=== PATIENT | female | born 1940 | race African-American/Black ===

== ENCOUNTER 2018-10-09 02:10 | Inpatient (IN) | payer OTHER ==
--- NOTE | 2018-10-09 02:42 | ED Physician Documentation ---
Lower Extremity Injury - HISTORIAN Historian: patient - HPI Chief Complaint: Fall Additional Information: Patient is reported to have started a sleep aid on Aug 30. Since that time the patient has been having some gradually increasing confusion and lethargy. She does not want to get out of bed. Spent most of the day today in bed. This evening fell out of bed and the son was not able to get her back up and called for an ambulance to bring her to the hospital. Patient is confused, according to her son seems to be at baseline to a little worse. Patient does not complain of any pain except with movement of the right lower extremity. No fever or chills noted. Patient has not been eating while. Onset: hours Where: home Severity: mild Context: fall Associated Symptoms:: denies: tingling, numbness distally, swelling, popping sensation, fainted Modifying Factors:: pain on movement (right hip) - ROS CONST: denies: recent illness, fever, chills CVS/RESP: denies: chest pain, shortness of breath GI/: denies: problems urinating, nausea, vomiting NEURO: head injury (abrasion tot he right temporal area). denies: headache - PAST HX Past History: other (HTN, Iron deficiency, dementia, insomnia) Immunizations: influenza Allergies/Adverse Reactions: Allergies Allergy/AdvReac Type Severity Reaction Status Date / Time No Known Allergies Allergy Verified 10/09/18 04:28 Home Medications: Ambulatory Orders Medication Instructions Recorded Ferrous Gluconate [Iron] 236 mg PO DAILY 10/09/18 Mirtazapine 7.5 mg PO 10/09/18 Nifedipine [Nifedipine ER] 60 mg PO DAILY 10/09/18 No122/Iron/Folic Acid 1 each PO DAILY 10/09/18 [ Multi Tablet] - SOCIAL HX Smoking History: non-smoker Alcohol Use: none Drug Use: none - FAMILY HX Family History: other (father - CVA, sister breast cancer) - VITAL SIGNS Vital Signs: Vital Signs Temp Pulse Resp BP Pulse Ox 97.8 F 84 16 142/59 97 10/09/18 03:30 10/09/18 03:30 10/09/18 03:30 10/09/18 03:30 10/09/18 03:30 - REVIEWED ASSESSMENTS Nursing Assessment Reviewed: Yes Vitals Reviewed: Yes Progress - Progress Progress: 04:15 Patient resting comfortably 04:58 CPK elevated at 1059 BUN 28 Creatinine 1.28 Will admitted to acute care for rhabdomyolysis and elevated kidney functions. Will start IV fluids, monitor kidney functions and get PT/OT consultation. ED Results Lab/Radiology - Radiology Radiology Impressions: Right hip History: Hip pain AP and frogleg lateral projections of the right hip demonstrate osteopenia. Heavy femoral arterial vascular calcifications are present. Impression: No acute osseous abnormality. No significant degenerative findings. Heavy femoral arterial vascular calcifications. Head CT without contrast History: Confusion Technique: Axial images were obtained from the skull base to the vertex without IV contrast. There are no comparison studies. Findings: There is age-related cortical volume loss. There is no positive mass effect or intra/extra-axial hemorrhage. Brain parenchyma demonstrates normal attenuation. There is mild soft tissue swelling of the right frontal and right parietal scalp. Visualized paranasal sinuses and mastoid air cells are clear and the calvarium is intact. Impression: No acute intracranial abnormality. Mild soft tissue swelling of the left frontal and parietal scalp. - Orders Orders: ED Orders Category Date Time Status CT BRAIN W/O CONTRAST Stat Exams 10/09/18 Taken RT HIP 2VIEW COMPLETE [RAD] Routine Exams 10/09/18 Taken CBC/PLATELET/DIFF Routine Lab 10/09/18 04:15 Received CMP Routine Lab 10/09/18 04:14 Received CREATINE KINASE Routine Lab 10/09/18 04:14 Received INFLUENZA A&B Routine Lab 10/09/18 03:04 Ordered URINALYSIS Routine Lab 10/09/18 Ordered Lower Extremities Injury Phy - Physical Exam General Appearance: no acute distress, alert Hips: right hip: limited range of motion, pain, left hip: non-tender, normal inspection, normal range of motion, no evidence of injury, N/A: deformity (none), swelling (none) Legs: bilateral: non-tender, normal inspection, normal range of motion, no evidence of injury Knees: bilateral: non-tender, normal inspection, normal range of motion, no evidence of injury Ankle: bilateral: non-tender, normal inspection, normal range of motion, no evidence of injury Foot: bilateral foot: non-tender, normal inspection, normal range of motion, no evidence of injury Gait: limited by pain Neuro/Vascular/Tendon: no vascular compromise, motor nml, sensation nml, tendon injury Head/ENT: pharynx nml, other (abrasion right temporal area) Neck/Back: nml inspection, non-tender Resp/CVS: chest non-tender, breath sounds nml, heart sounds nml, no resp. distress, lungs clear Abdomen: non-tender, pelvis stable Discharge Clincal Impression: Rhabdomyolysis Qualifiers: Rhabdomyolysis type: traumatic Encounter type: initial encounter Qualified Cod e(s): T79.6XXA - Traumatic ischemia of muscle, initial encounter Referrals: Primary Doctor,No [Primary Care Provider] - 2 Days Disposition: 09 ADMITTED INPATIENT Decision to Admit: [id number] Date of Decison to Admit: 10/09/18 Decision Time: 05:21
--- NOTE | 2018-10-09 06:24 | Diagnostic Imaging Report ---
TOI SWANN [facility] [address] [facility] [address] [address] Report Submission Date: Oct 09, 2018 4:56:52 AM TESTING SPECIALIST Patient Study Name: PRADEEP CHAVEZ Date: Oct 09, 2018 4:35:55 AM TESTING SPECIALIST Modality Type: DX Gender: F Description: RT HIP 2VIEW COMPLETE : 38 Institution: [facility] Physician: TOI SWANN Right hip History: Hip pain AP and frogleg lateral projections of the right hip demonstrate osteopenia. Heavy femoral arterial vascular calcifications are present. Impression: No acute osseous abnormality. No significant degenerative findings. Heavy femoral arterial vascular calcifications. Electronically signed on Oct 09, 2018 4:56:52 AM TESTING SPECIALIST by: Monique KAUFMAN
--- NOTE | 2018-10-09 06:26 | Diagnostic Imaging Report ---
TOI SWANN [facility] [address] [facility] [address] [place] [address]. [id number] Report Submission Date: Oct 09, 2018 5:08:33 AM KEY PUNCH OPERATOR Patient Study Name: PRADEEP CHAVEZ Date: Oct 09, 2018 4:23:58 AM KEY PUNCH OPERATOR Modality Type: CT\SR Gender: F Description: CT BRAIN W/O CONTRAST : 38 Institution: [facility] Physician: TOI SWANN Head CT without contrast History: Confusion Technique: Axial images were obtained from the skull base to the vertex without IV contrast. There are no comparison studies. Findings: There is age-related cortical volume loss. There is no positive mass effect or intra/extra-axial hemorrhage. Brain parenchyma demonstrates normal attenuation. There is mild soft tissue swelling of the right frontal and right parietal scalp. Visualized paranasal sinuses and mastoid air cells are clear and the calvarium is intact. Impression: No acute intracranial abnormality. Mild soft tissue swelling of the left frontal and parietal scalp. Electronically signed on Oct 09, 2018 5:08:33 AM KEY PUNCH OPERATOR by: Monique KAUFMAN
[2018-10-09 06:34] VITALS: BMI 28.3
[2018-10-09 07:31] LABS: eGFR (Non-African) 43
[2018-10-09 07:32] LABS: BASOPHILS % 0.3 (0.0-1.5); EOSINOPHILS % 0.7 % (0.0-6.8); MEAN CORPUSCULAR HEMOGLOBIN 28.4 pg (28.0-34.0); MONOCYTES % 8.7 % (0.0-11.0); NEUTROPHILS # 6.5 # k/uL (1.4-7.7)
[2018-10-09 07:34] LABS: APPEARANCE,URINE CLEAR (CLEAR); COLOR,URINE YELLOW (YELLOW); OCCULT BLOOD,URINE 1+ (NEGATIVE)
[2018-10-09] MEDS: amLODIPine BESYLATE 5 MG TABLET PO SCH (07:58)
[2018-10-09] MEDS: MULTIVITAMIN 1 EACH TABLET PO SCH (07:58)
[2018-10-09] MEDS: ENOXAPARIN SODIUM 30 MG/0.3 ML DISP.SYRIN SQ SCH (07:58)
--- NOTE | 2018-10-09 10:25 | History and Physical Report ---
History of Present Illnes - History of Present Illness Reason for Visit: Rhabdomyolysis History of Present Illness: This is a 77 year old female who had a fall last evening in her home. She had experienced another fall the day prior to admission and was down in her bedroom for most of the evening. She has had some significant myalgias as well as a markedly elevated CK (over 1000). - Past Medical History Cardiac: HTN TECHNICAL ADMINISTRATIVE ASSISTANT: Dementia, Other (Insomnia) Renal/: Chronic renal insuff Endocrine: obesity Dermatology: denies: Other - Past Surgical History Past Surgical History: Other (colonoscopy) - Past Social History Smoke: No Alcohol: None Drugs: None Lives: With Family - Health Maintenance Health Maintenance: Cholesterol Influenza Vaccine: Current for this Influenza Season Pneumonia Vaccine: Yes Resuscitation Status: Resusciation Status Resuscitation Status Full Code - Unable to Obtain History Unable to Obtain: No Review of Systems - Review of Systems Constitutional: negative: Fever, Chills Eyes: negative: pain ENT: negative: Ear Pain Respiratory: negative: Cough Cardiovascular: negative: Chest Pain Gastrointestinal: negative: Nausea, Vomiting Genitourinary: negative: Dysuria Musculoskeletal: Other (generalized muscle pain) Skin: negative: Rash Neurological: Weakness, Confusion (due to baseline dementia. She has no memory of coming to the hospital last night) - Medications/Allergies Allergies/Adverse Reactions: Allergies Allergy/AdvReac Type Severity Reaction Status Date / Time No Known Allergies Allergy Verified 10/09/18 04:28 Home Medications: Home Medications Ferrous Gluconate [Iron] 236 mg PO DAILY 10/09/18 Mirtazapine 7.5 mg PO 10/09/18 Nifedipine [Nifedipine ER] 60 mg PO DAILY 10/09/18 No122/Iron/Folic Acid [ Multi Tablet] 1 each PO DAILY 10/09/18 Current Inpatient Medications: Current Inpatient Medications Amlodipine Besylate (Norvasc) 10 mg PO DAILY [facility] Last Admin: 10/09/18 07:58 Dose: 10 mg Enoxaparin Sodium (Lovenox) 30 mg SQ QD [facility] Stop: 10/22/18 07:01 Last Admin: 10/09/18 07:58 Dose: 30 mg Sodium Chloride (Normal Saline) 1,000 mls @ 75 mls/hr IV Q8 [facility] Multivitamins (Tab-A-Swapnil) 1 each PO DAILY [facility] Last Admin: 10/09/18 07:58 Dose: 1 each Exam - Exam Vital Signs: Vital Signs (72 hours) 10/09/18 10/09/18 10/09/18 02:15 03:00 03:30 Temperature 97.8 F 97.8 F 97.8 F Pulse Rate [ 84 84 84 Left Pulse ox] Pulse Rate [ Left] Respiratory 16 16 16 Rate Blood Pressure 131/59 141/61 142/59 [Left Arm] O2 Sat by Pulse 97 98 97 Oximetry 10/09/18 10/09/18 10/09/18 05:45 05:46 09:33 Temperature 97.8 F 97.0 F L 98 F Pulse Rate [ 84 79 Left Pulse ox] Pulse Rate [ 80 Left] Respiratory 16 14 18 Rate Blood Pressure 142/59 137/75 137/69 [Left Arm] O2 Sat by Pulse 98 98 95 Oximetry General: Oriented to Person, Cooperative, Mild distress. No: Oriented to Place, Oriented to Time HEENT: Atraumatic, PERRLA, EOMI Neck: No: Stridor, Rigidity Lungs: Clear to auscultation Cardiovascular: Regular rate, Normal S1, Normal S2 Murmur: No: Systolic Murmur Abdomen: Normal bowel sounds, Soft, Other (Mild diffuse tenderness) Genitourinary: No: Other Male Genitourinary: No: Other Female Genitourinary: No: Other Integumentary: Normal, Warm, Dry Extremities: No clubbing, No cyanosis, No edema Neurological: Normal speech (but with poor content) Psych/Mental Status: No: Mental status NL - Laboratory Results Laboratory Results: Laboratory Results 10/09/18 10/09/18 10/09/18 03:45 03:45 04:14 WBC RBC Hgb Hct MCV MCH MCHC RDW Plt Count Neut % (Auto) Lymph % (Auto) [place] % (Auto) Eos % (Auto) Baso % (Auto) Neut # (Auto) Lymph # (Auto) [place] # (Auto) Eos # (Auto) Baso # (Auto) Sodium 137 Potassium 4.3 Chloride 107 Carbon Dioxide 25 BUN 28 H Creatinine 1.28 H Estimated Creat Clear 51 Est GFR ( Amer) > 60 Est GFR (Non-Af Amer) 43 L Glucose 120 H Calcium 9.0 Total Bilirubin 0.7 AST 112 H ALT 39 Alkaline Phosphatase 66 Creatine Kinase 1059 H Total Protein 7.4 Albumin 4.0 Urine Color Yellow Urine Appearance Clear Urine pH 6.0 Ur Specific [place] 1.025 Urine Protein Trace H Urine Ketones Negative Urine Occult Blood 1+ H Urine Nitrite Negative Urine Bilirubin Negative Urine Urobilinogen 1.0 Ur Leukocyte Esterase Negative Urine Glucose Negative Influenza A (Rapid) Negative Influenza B (Rapid) Negative 10/09/18 04:15 WBC 8.60 RBC 3.29 L Hgb 9.3 L Hct 27.8 L MCV 85.0 MCH 28.4 MCHC 33.5 RDW 14.1 Plt Count 187 Neut % (Auto) 75.4 Lymph % (Auto) 14.9 L Tift % (Auto) 8.7 Eos % (Auto) 0.7 Baso % (Auto) 0.3 Neut # (Auto) 6.5 Lymph # (Auto) 1.3 [place]ift # (Auto) 0.7 Eos # (Auto) 0.1 Baso # (Auto) 0.0 Sodium Potassium Chloride Carbon Dioxide BUN Creatinine Estimated Creat Clear Est GFR ( Amer) Est GFR (Non-Af Amer) Glucose Calcium Total Bilirubin AST ALT Alkaline Phosphatase Creatine Kinase Total Protein Albumin Urine Color Urine Appearance Urine pH Ur Specific [place] Urine Protein Urine Ketones Urine Occult Blood Urine Nitrite Urine Bilirubin Urine Urobilinogen Ur Leukocyte Esterase Urine Glucose Influenza A (Rapid) Influenza B (Rapid) Assessment/Plan - Assessment/Plan (1) Rhabdomyolysis Status: Acute Current Visit: Yes Qualifiers: Rhabdomyolysis type: traumatic Encounter type: initial encounter Qualified Code(s): T79.6XXA - Traumatic ischemia of muscle, initial encounter Assessment: With CK >1000 Plan: IFV Monitor renal function Monitor CK (2) Dementia Status: Chronic Current Visit: Yes Qualifiers: Dementia type: Alzheimer's disease Alzheimer's disease onset: late-onset Dementia behavioral disturbance: without behavioral disturbance Qualified Code(s): G30.1 - Alzheimer's disease with late onset; F02.80 - Dementia in other diseases classified elsewhere without behavioral disturbance (3) Hypertension Status: Acute Current Visit: Yes Qualifiers: Hypertension type: essential hypertension Qualified Code(s): I10 - Essential (primary) hypertension Assessment: BP currently well controlled Plan: Continue amblodipine (4) Chronic renal insufficiency, stage III (moderate) Status: Acute Current Visit: Yes Assessment: Stable compared with last labs done in Dr. Devi's office (5) Obesity (BMI 35.0-39.9 without comorbidity) Status: Acute Current Visit: Yes Assessment: Chronic, stable VTE Assessment - RISK FACTOR SCORE VTE RISK FACTOR SCORES: AGE OVER 60 YEARS, ANTICIPATED BED CONFINEMENT OR IMMOBILIZATION > 24 HOURS (On Lovenox/SCDs)
[2018-10-09] MEDS ORDERED: 0.9 % SODIUM CHLORIDE 1,000 ML IV SCH (13:00)
[2018-10-09] MEDS: 0.9 % SODIUM CHLORIDE 1,000 ML IV SCH ×2 (14:24→21:07)
[2018-10-09 17:11] LABS: eGFR (Non-African) > 60
[2018-10-09] MEDS ORDERED: MIRTAZAPINE 15 MG TABLET PO SCH (21:00)
[2018-10-10] MEDS: ENOXAPARIN SODIUM 30 MG/0.3 ML DISP.SYRIN SQ SCH (06:29)
--- NOTE | 2018-10-10 08:18 | Inpatient Progress Note ---
Subjective - Required Recertification Statement I anticipate X number of days because-include discharge plan: 1 - Review of Systems Events since last encounter: Ms. Carrillo is feeling a little better this morning. She is still confused which appears to be her baseline. She says she has a little bit of pain in her left knee, but other than that is feeling well. I am going to have her see PT today for evaluation. front services agent has seen her and she can be skilled without a three day stay, which I believe would be very beneficial for her. Her labs look good today, but her CK is still pending. General: Denies: Chills HEENT: Denies: Head Aches Pulmonary: Denies: Dyspnea, Cough Cardiovascular: Denies: Chest Pain Gastrointestinal: Denies: Nausea, Vomiting Genitourinary: Denies: Dysuria Musculoskeletal: Leg Pain (left knee). Denies: Neck Pain Neurological: Confusion Objective - Exam Vitals and I&O: Vital Signs Temp 98.6 F 10/10/18 06:00 Pulse 828 H 10/10/18 06:00 Resp 18 10/10/18 06:00 BP 110/56 10/10/18 06:00 Pulse Ox 96 10/10/18 02:00 Intake & Output 10/09/18 10/09/18 10/10/18 11:59 23:59 11:59 Intake Total 120 240 Output Total 0 Balance 120 240 Weight 77.27 kg 82.7 kg Intake: Oral 120 240 Output: Urine 0 Other: Voiding Method Diaper Diaper Diaper # Voids 2 2 # Bowel Movements 0 2 General: Oriented to Person, No acute distress HEENT: Atraumatic, PERRLA, EOMI Neck: Supple, No JVD Lungs: Clear to auscultation Cardiovascular: Regular rate, Normal S1, Normal S2 Abdomen: Normal bowel sounds, Soft, No tenderness Extremities: No clubbing, No cyanosis, Other (Mild tenderness of the left lateral knee. No bruising is noted. SCDs are in place) Neurological: Normal speech (but with poor content) Psych/Mental Status: No: Intact Judgment - Results Results: Laboratory Results WBC 8.60 K/ul (4.00-12.00) 10/09/18 04:15 RBC 3.29 M/ul (3.90-5.20) L 10/09/18 04:15 Hgb 9.3 g/dL (12.0-16.0) L 10/09/18 04:15 Hct 27.8 % (34.5-46.5) L 10/09/18 04:15 MCV 85.0 fl (80.0-100.0) 10/09/18 04:15 MCH 28.4 pg (28.0-34.0) 10/09/18 04:15 MCHC 33.5 g/dL (30.0-36.0) 10/09/18 04:15 RDW 14.1 % (11.3-14.3) 10/09/18 04:15 Plt Count 187 K/mm3 (130-400) 10/09/18 04:15 Neut % (Auto) 75.4 % (39.0-79.0) 10/09/18 04:15 Lymph % (Auto) 14.9 % (16.0-50.0) L 10/09/18 04:15 [place] % (Auto) 8.7 % (0.0-11.0) 10/09/18 04:15 Eos % (Auto) 0.7 % (0.0-6.8) 10/09/18 04:15 Baso % (Auto) 0.3 (0.0-1.5) 10/09/18 04:15 Neut # (Auto) 6.5 # k/uL (1.4-7.7) 10/09/18 04:15 Lymph # (Auto) 1.3 # k/uL (0.6-4.0) 10/09/18 04:15 [place] # (Auto) 0.7 # k/uL (0.0-0.9) 10/09/18 04:15 Eos # (Auto) 0.1 # k/uL (0.0-0.6) 10/09/18 04:15 Baso # (Auto) 0.0 # k/uL (0.0-0.5) 10/09/18 04:15 Sodium 141 mmol/L (136-145) 10/09/18 16:10 Potassium 3.9 mmol/L (3.5-5.1) 10/09/18 16:10 Chloride 105 mmol/L (98-107) 10/09/18 16:10 Carbon Dioxide 26 mmol/L (22-30) 10/09/18 16:10 BUN 25 mg/dL (7-17) H 10/09/18 16:10 Creatinine 1.22 mg/dL (0.52-1.04) H 10/09/18 16:10 Estimated Creat Clear 54 10/09/18 16:10 Est GFR ( Amer) > 60 (60-) 10/09/18 16:10 Est GFR (Non-Af Amer) > 60 (60-) 10/09/18 16:10 Glucose 106 mg/dL (74-106) 10/09/18 16:10 Calcium 8.8 mg/dL (8.4-10.2) 10/09/18 16:10 Total Bilirubin 0.7 mg/dL (0.2-1.3) 10/09/18 04:14 AST 112 U/L (15-46) H 10/09/18 04:14 ALT 39 U/L (13-69) 10/09/18 04:14 Alkaline Phosphatase 66 U/L (38-126) 10/09/18 04:14 Creatine Kinase 1059 U/L (30-135) H 10/09/18 04:14 Total Protein 7.4 g/dL (6.3-8.2) 10/09/18 04:14 Albumin 4.0 g/dL (3.5-5.0) 10/09/18 04:14 Urine Color Yellow (YELLOW) 10/09/18 03:45 Urine Appearance Clear (CLEAR) 10/09/18 03:45 Urine pH 6.0 (5.0 - 8.0) 10/09/18 03:45 Ur Specific [place] 1.025 (1.010-1.030) 10/09/18 03:45 Urine Protein Trace mg/dL (NEGATIVE) H 10/09/18 03:45 Urine Ketones Negative mg/dL (NEGATIVE) 10/09/18 03:45 Urine Occult Blood 1+ (NEGATIVE) H 10/09/18 03:45 Urine Nitrite Negative (NEGATIVE) 10/09/18 03:45 Urine Bilirubin Negative (NEGATIVE) 10/09/18 03:45 Urine Urobilinogen 1.0 Eu (0.2-1.0) 10/09/18 03:45 Ur Leukocyte Esterase Negative (NEGATIVE) 10/09/18 03:45 Urine Glucose Negative mg/dL (NEGATIVE) 10/09/18 03:45 Influenza A (Rapid) Negative (NEGATIVE) 10/09/18 03:45 Influenza B (Rapid) Negative (NEGATIVE) 10/09/18 03:45 Assessment/Plan - Assessment/Plan (1) Rhabdomyolysis Status: Acute Current Visit: Yes Qualifiers: Rhabdomyolysis type: traumatic Encounter type: initial encounter Qualified Code(s): T79.6XXA - Traumatic ischemia of muscle, initial encounter Assessment: Await CK (2) Falls frequently Status: Acute Current Visit: Yes Assessment: Therapy to see today and see if we can skill her. (3) Dementia Status: Chronic Current Visit: Yes Qualifiers: Dementia type: Alzheimer's disease Alzheimer's disease onset: late-onset Dementia behavioral disturbance: without behavioral disturbance Qualified Code(s): G30.1 - Alzheimer's disease with late onset; F02.80 - Dementia in other diseases classified elsewhere without behavioral disturbance Assessment: Chronic, stable (4) Hypertension Status: Acute Current Visit: Yes Qualifiers: Hypertension type: essential hypertension Qualified Code(s): I10 - Essential (primary) hypertension Assessment: BP is stable (5) Chronic renal insufficiency, stage III (moderate) Status: Acute Current Visit: Yes Assessment: Stable (6) Obesity (BMI 35.0-39.9 without comorbidity) Status: Acute Current Visit: Yes
[2018-10-10 08:47] LABS: eGFR (Non-African) > 60
[2018-10-10] MEDS: MULTIVITAMIN 1 EACH TABLET PO SCH (09:33)
[2018-10-10] MEDS: amLODIPine BESYLATE 5 MG TABLET PO SCH (09:33)
[2018-10-10] MEDS: 0.9 % SODIUM CHLORIDE 1,000 ML IV SCH ×3 (09:33→22:29)
[2018-10-11] MEDS: ENOXAPARIN SODIUM 30 MG/0.3 ML DISP.SYRIN SQ SCH (05:44)
[2018-10-11] MEDS: 0.9 % SODIUM CHLORIDE 1,000 ML IV SCH ×2 (08:20→18:36)
[2018-10-11] MEDS: amLODIPine BESYLATE 5 MG TABLET PO SCH (09:16)
[2018-10-11] MEDS: MULTIVITAMIN 1 EACH TABLET PO SCH (09:16)
[2018-10-11] MEDS ORDERED: ACETAMINOPHEN ORAL SOLUTION 325 MG/10.15 ML CUP PO PRN (17:10)
--- NOTE | 2018-10-11 17:44 | Inpatient Progress Note ---
Subjective - Required Recertification Statement I anticipate X number of days because-include discharge plan: 1 - Review of Systems Events since last encounter: Consuelo is still having some pain. In addition, she has a low grade fever. She is still very confused, which is her baseline, however she has had difficulty standing and doing any sort of transfer. I spoke to therapy who agreed that she would be a candidate for skilled stay and at least give her a week of skilled ca re with hopes of her being able to return to home on discharge. General: Other (grade fever). Denies: Chills HEENT: Denies: Head Aches Pulmonary: Cough. Denies: Dyspnea Cardiovascular: Chest Pain Gastrointestinal: Denies: Nausea, Vomiting Genitourinary: Denies: Dysuria Musculoskeletal: Denies: Neck Pain Neurological: Confusion Objective - Exam Vitals and I&O: Vital Signs Temp 100.1 F H 10/11/18 13:10 Pulse 78 10/11/18 13:10 Resp 18 10/11/18 13:10 BP 118/52 10/11/18 13:10 Pulse Ox 96 10/11/18 13:10 Intake & Output 10/10/18 10/11/18 10/11/18 23:59 11:59 23:59 Intake Total 480 600 0 Output Total 3 Balance 480 597 0 Intake: IV 600 Right Medial Port Forearm 600 Oral 480 0 Output: Stool 3 Other: Voiding Method Diaper Diaper # Voids 2 2 2 # Bowel Movements 1 0 General: Alert, Oriented to Person HEENT: Atraumatic, PERRLA, EOMI Neck: Supple Lungs: Wheezes (scant) Cardiovascular: Regular rate Abdomen: Normal bowel sounds, Soft, No tenderness Extremities: Other (Left lateral knee pain. no right knee pain) Skin: Normal, [place] Neurological: Normal speech (but poor content) Psych/Mental Status: No: Mental status NL, Intact Judgment - Results Results: Laboratory Results WBC 8.60 K/ul (4.00-12.00) 10/09/18 04:15 RBC 3.29 M/ul (3.90-5.20) L 10/09/18 04:15 Hgb 9.3 g/dL (12.0-16.0) L 10/09/18 04:15 Hct 27.8 % (34.5-46.5) L 10/09/18 04:15 MCV 85.0 fl (80.0-100.0) 10/09/18 04:15 MCH 28.4 pg (28.0-34.0) 10/09/18 04:15 MCHC 33.5 g/dL (30.0-36.0) 10/09/18 04:15 RDW 14.1 % (11.3-14.3) 10/09/18 04:15 Plt Count 187 K/mm3 (130-400) 10/09/18 04:15 Neut % (Auto) 75.4 % (39.0-79.0) 10/09/18 04:15 Lymph % (Auto) 14.9 % (16.0-50.0) L 10/09/18 04:15 [place] % (Auto) 8.7 % (0.0-11.0) 10/09/18 04:15 Eos % (Auto) 0.7 % (0.0-6.8) 10/09/18 04:15 Baso % (Auto) 0.3 (0.0-1.5) 10/09/18 04:15 Neut # (Auto) 6.5 # k/uL (1.4-7.7) 10/09/18 04:15 Lymph # (Auto) 1.3 # k/uL (0.6-4.0) 10/09/18 04:15 Republic # (Auto) 0.7 # k/uL (0.0-0.9) 10/09/18 04:15 Eos # (Auto) 0.1 # k/uL (0.0-0.6) 10/09/18 04:15 Baso # (Auto) 0.0 # k/uL (0.0-0.5) 10/09/18 04:15 Sodium 139 mmol/L (136-145) 10/10/18 Unknown Potassium 3.8 mmol/L (3.5-5.1) 10/10/18 Unknown Chloride 108 mmol/L (98-107) H 10/10/18 Unknown Carbon Dioxide 23 mmol/L (22-30) 10/10/18 Unknown BUN 25 mg/dL (7-17) H 10/10/18 Unknown Creatinine 1.14 mg/dL (0.52-1.04) H 10/10/18 Unknown Estimated Creat Clear 62 10/10/18 Unknown Est GFR ( Amer) > 60 (60-) 10/10/18 Unknown Est GFR (Non-Af Amer) > 60 (60-) 10/10/18 Unknown Glucose 103 mg/dL (74-106) 10/10/18 Unknown Calcium 8.5 mg/dL (8.4-10.2) 10/10/18 Unknown Total Bilirubin 0.6 mg/dL (0.2-1.3) 10/10/18 Unknown AST 85 U/L (15-46) H 10/10/18 Unknown ALT 39 U/L (13-69) 10/10/18 Unknown Alkaline Phosphatase 58 U/L (38-126) 10/10/18 Unknown Creatine Kinase 1022 U/L (30-135) H 10/10/18 Unknown Total Protein 6.7 g/dL (6.3-8.2) 10/10/18 Unknown Albumin 3.5 g/dL (3.5-5.0) 10/10/18 Unknown Urine Color Yellow (YELLOW) 10/09/18 03:45 Urine Appearance Clear (CLEAR) 10/09/18 03:45 Urine pH 6.0 (5.0 - 8.0) 10/09/18 03:45 Ur Specific [place] 1.025 (1.010-1.030) 10/09/18 03:45 Urine Protein Trace mg/dL (NEGATIVE) H 10/09/18 03:45 Urine Ketones Negative mg/dL (NEGATIVE) 10/09/18 03:45 Urine Occult Blood 1+ (NEGATIVE) H 10/09/18 03:45 Urine Nitrite Negative (NEGATIVE) 10/09/18 03:45 Urine Bilirubin Negative (NEGATIVE) 10/09/18 03:45 Urine Urobilinogen 1.0 Eu (0.2-1.0) 10/09/18 03:45 Ur Leukocyte Esterase Negative (NEGATIVE) 10/09/18 03:45 Urine Glucose Negative mg/dL (NEGATIVE) 10/09/18 03:45 Influenza A (Rapid) Negative (NEGATIVE) 10/09/18 03:45 Influenza B (Rapid) Negative (NEGATIVE) 10/09/18 03:45 Assessment/Plan - Assessment/Plan (1) Rhabdomyolysis Status: Acute Current Visit: Yes Qualifiers: Rhabdomyolysis type: traumatic Encounter type: initial encounter Qualified Code(s): T79.6XXA - Traumatic ischemia of muscle, initial encounter Assessment: Recheck CK in the am. It has come down, but only minimally Will also check a sed rate to evaluate for any inflammatory myopathies (2) Falls frequently Status: Acute Current Visit: Yes Assessment: PT saw him today. Will skill in the am. (3) Dementia Status: Chronic Current Visit: Yes Qualifiers: Dementia type: Alzheimer's disease Alzheimer's disease onset: late-onset Dementia behavioral disturbance: without behavioral disturbance Qualified Code(s): G30.1 - Alzheimer's disease with late onset; F02.80 - Dementia in other diseases classified elsewhere without behavioral disturbance Assessment: Chronic, stable (4) Hypertension Status: Acute Current Visit: Yes Qualifiers: Hypertension type: essential hypertension Qualified Code(s): I10 - Essential (primary) hypertension Assessment: Well controlled (5) Chronic renal insufficiency, stage III (moderate) Status: Acute Current Visit: Yes Assessment: Improved (6) Obesity (BMI 35.0-39.9 without comorbidity) Status: Acute Current Visit: Yes
--- NOTE | 2018-10-11 20:13 | Diagnostic Imaging Report ---
HAL CHAN [facility] [id number] [facility] [address] [place] [address]. [id number] Report Submission Date: Oct 11, 2018 8:06:41 PM LACE TEARING SUPERVISOR Patient Study Name: PRADEEP CHAVEZ Date: Oct 11, 2018 6:20:00 PM LACE TEARING SUPERVISOR Modality Type: DX Gender: F Description: CHEST 1 VIEW : 38 Institution: [facility] Physician: HAL CHAN Chest AP portable Date of Exam: October 11, 2018. History: cough, low grade fever (Hx) / Findings: No comparison studies are provided. There is cardiomegaly and right perihilar infiltrate. The trachea is midline. Aortic arch contour is normal. There is left lower lobe atelectasis. Impression: Cardiomegaly. Electronically signed on Oct 11, 2018 8:06:41 PM LACE TEARING SUPERVISOR by: Chioma KAUFMAN
--- NOTE | 2018-10-11 20:14 | Diagnostic Imaging Report ---
[facility]/MED SURG [facility] [address] [facility] [address] [id number] Report Submission Date: Oct 11, 2018 7:06:28 PM FAMILY SERVICES SPECIALIST Patient Study Name: PRADEEP CHAVEZ Date: Oct 11, 2018 6:20:24 PM FAMILY SERVICES SPECIALIST Modality Type: DX Gender: F Description: KNEE 3 VIEWS : 38 Institution: [facility] Physician: TANNER MAYS/MED SURG Left knee, three views History: Left knee pain. Findings: The osseous structures are intact without acute fracture. There is severe narrowing of the tibial femoral joint space with associated marginal spurring. No joint effusion or soft tissue swelling is definitely identified. Impression: 1. No acute osseous injury. 2. Severe knee osteoarthritis. Electronically signed on Oct 11, 2018 7:06:28 PM FAMILY SERVICES SPECIALIST by: Adolfo KAUFMAN
[2018-10-11] MEDS ORDERED: cefTRIAXone SODIUM 1 GM in 0.9 % SODIUM CHLORIDE(MINIBAG+ 50 ML IV SCH (23:00)
[2018-10-12] MEDS: 0.9 % SODIUM CHLORIDE 1,000 ML IV SCH (00:47)
[2018-10-12] MEDS: ENOXAPARIN SODIUM 30 MG/0.3 ML DISP.SYRIN SQ SCH (06:28)
[2018-10-12 07:52] LABS: eGFR (Non-African) > 60
[2018-10-12] MEDS: MULTIVITAMIN 1 EACH TABLET PO SCH (08:34)
[2018-10-12] MEDS: amLODIPine BESYLATE 5 MG TABLET PO SCH (08:34)
[2018-10-12 08:58] VITALS: BP 98/48
[2018-10-12] MEDS ORDERED: CEFTRIAXONE SODIUM IV SCH (09:00)
--- NOTE | 2018-10-12 09:57 | Discharge Summary ---
Discharge Summary - Discharge Sumary History of Present Illness: 77 year old female with decreased ambulation, repeated falls and decreased sensorium who presented to the ER after a fall at home. CT head and right hip films showed no fractures on admission. She was noted to have a markedly elevated CK and was diagnosed with rhabdomyolysis. Condition at Discharge: Stable Home Medications: Ambulatory Orders Medication Instructions Recorded Ferrous Gluconate [Iron] 236 mg PO DAILY 10/09/18 Mirtazapine 7.5 mg PO 10/09/18 Nifedipine [Nifedipine ER] 60 mg PO DAILY 10/09/18 No122/Iron/Folic Acid 1 each PO DAILY 10/09/18 [ Multi Tablet] Consultations this Visit: Other (OT/PT) Procedures this Visit: None Allergies/Adverse Reactions: Allergies Allergy/AdvReac Type Severity Reaction Status Date / Time No Known Allergies Allergy Verified 10/09/18 04:28 Patient Problems: Current Active Problems Problem Status Onset Chronic renal insufficiency, stage III (moderate) Acute Falls frequently Acute Hypertension Acute Obesity (BMI 35.0-39.9 without comorbidity) Acute Pneumonia Acute Rhabdomyolysis Acute Dementia Chronic Discharge Summary: She was admitted for hydration. Her renal function improved. She was noted to have a fever on 10/11/18, and CXR showed a right perihilar infiltrated. She was started on Rocephin. On the morning of 10/12/18, her CK had decreased to to 201, and she was able to participate in therapy. She was transferred to skilled stay for therapy, with plans to go home after discharge. - Final Diagnosis (1) Rhabdomyolysis Problems: Improved (2) Falls frequently Problems: Continue therapy (3) Dementia Problems: Chronic, stable Right or Left: Left (4) Hypertension Problems: Well controlled (5) Chronic renal insufficiency, stage III (moderate) Problems: Improved with hydration (6) Obesity (BMI 35.0-39.9 without comorbidity) Problems: Chronic, stable (7) Pneumonia Right or Left: Right
== END 2018-10-12 10:44 | disposition short-term general hospital (02) | DRG 195 ==
LOC: ED 02:10 → SOUTH 05:27
PROVIDERS: ADMIT Family Medicine; ATTEND Family Medicine
DX: J18.9 Pneumonia, unspecified organism (principal); G30.1 Alzheimer's disease with late onset; F02.80 Dementia in other diseases classified elsewhere, unspecified severity, without behavioral disturbance, psychotic disturbance, mood disturbance, and anxiety; I10 Essential (primary) hypertension; N18.3 Chronic kidney disease, stage 3 (moderate); M25.561 Pain in right knee; W06.XXXA Fall from bed, initial encounter; Y92.003 Bedroom of unspecified non-institutional (private) residence as the place of occurrence of the external cause
CPT/HCPCS: 36415; 51701; 70450; 71045; 73502; 73562; 80048; 80053; 81002; 82550; 85025; 85027; 85651; 87400; 97161; 97165; 97530; 97535; 99285; J0696; J1650; J7030; 99222; 99231; 99232; 99238; S1016